=== PATIENT | male | born 1990 | race Caucasian/White ===

== ENCOUNTER 2016-11-22 23:46 | Inpatient (IN) | payer SELFPAY ==
[~2016-11-22] VITALS: Ht 175.3 cm; Wt 132.5 kg
[2016-11-23] MEDS ORDERED: SODIUM CHLORIDE 0.9% 1000ML 1,000 ML IV STA ×2 (00:09)
[2016-11-23 00:58] LABS: BASO % 0.4 %; BASO ABS # 0.06 K/uL (0-0.2); COMPLETE YES; EOS % 6.4 %; HEMATOCRIT 35.8 % (42-52); IG% 0.4 %; LYMPH % 16.6 %; LYMPH ABS # 2.25 K/uL (1.2-3.4); MEAN CELL VOLUME 81.7 fL (80-100); MEAN CORPUSCULAR HEMOGLOBIN 27.2 pg (25-34); MEAN CORPUSCULAR HGB CONC 33.2 g/dl (32-36); MEAN PLATELET VOLUME 9.4 fL (7.4-10.4); MONO % 9.9 %; NEUT % 66.3 %; PLATELET COUNT 319 K/uL (130-400); RED BLOOD COUNT 4.38 M/uL (4.7-6.1); WHITE BLOOD COUNT 13.58 K/uL (4.8-10.8)
[2016-11-23 01:06] LABS: INR 1.1 (0.9-1.1); PARTIAL THROMBOPLASTIN RATIO 1.1; PROTHROMBIN TIME (PATIENT) 11.8 SECONDS (9.0-12.0)
[2016-11-23] MEDS ORDERED: LISI-461 PO (01:07)
[2016-11-23] MEDS ORDERED: PRLSR20 PO (01:08)
[2016-11-23 01:32] LABS: BUN/CREATININE RATIO 7.8 (10-20); CALCIUM 13.7 mg/dl (8.5-10.1); MAGNESIUM 2.2 mg/dl (1.8-2.4); POTASSIUM 3.9 mmol/L (3.5-5.1); THYROID STIMULATING HORMONE 3.12 uIu/ml (0.300-4.500)
[2016-11-23] MEDS ORDERED: ACETAMINOPHEN 325 MG TAB PO PRN (03:15)
--- NOTE | 2016-11-23 03:42 | EMERGENCY ROOM VISIT NOTE ---
History First contact with patient: 00:01 Chief Complaint: REFERRED BY DOCTOR Stated Complaint: REFERRED BY DOCTOR-POOR KIDNEY FUNCTION History of Present Illness The patient is a 26 year old male who presents to the Emergency Room with complaints of referred by for abnormal lab tests. Patient states for the past 3 weeks he has been having morning vomiting and headaches with fatigue. Patient has had some weight loss. He has been noncompliant with his blood pressure medication. He went to the family care doctor today and was sent in for a creatinine and hypercalcemia. Patient states he's had some upper abdominal fullness. No known family history of cancer. Patient denies chest pain, dyspnea, fever, chills, cough, congestion, diarrhea, penile pain, testicular pain, testicular masses, vision problems. He is tolerate by mouth fluids but has a lack of appetite. Review of Systems See HPI for pertinent positives & negatives. A total of 10 systems reviewed and were otherwise negative. Past Medical/Surgical History Medical Problems: (1) Acute renal failure HTN Social History Smoking Status: Never Smoker Smokeless Tobacco Use: No Alcohol Use: occasionally Drug Use: none Marital Status: single Housing Status: lives with family Occupation Status: employed Current/Historical Medications Scheduled Lisinopril (Zestril), 10 MG PO DAILY Omeprazole (Prilosec), 20 MG PO QAM Allergies Coded Allergies: No Known Allergies (Unverified , 12/13/06) Physical Exam Vital Signs Date Time Temp Pulse Resp B/P (MAP) Pulse Ox O2 Delivery O2 Flow Rate FiO2 11/23/16 02:42 94 18 171/116 100 Room Air 11/23/16 01:28 88 11/23/16 00:44 92 20 138/103 95 Room Air 11/23/16 00:43 95 Room Air 11/23/16 00:43 95 Room Air 11/22/16 23:59 36.6 100 19 163/109 95 Room Air Physical Exam VITALS: Vitals are noted on the nurse's note and reviewed by myself. Vital signs hypertensive GENERAL:pleasant male, in no acute distress, nondiaphoretic, well-developed well -nourished. SKIN: Face with slightly malar rash present The rest skin was without rashes, erythema, edema, or bruising. There is no tenting of the skin. Capillary reflex less than 2 seconds. HEAD: Normocephalic atraumatic. EARS: External auditory canals clear, tympanic membranes pearly sellers without erythema or effusion bilaterally. EYES: Pupils equal round and reactive to light and accommodation. Conjunctivae with injection, sclerae without icterus. Extraocular movements intact. NOSE: Patent, turbinates without inflammation or discharge. No sinus tenderness. MOUTH: Mucous membranes moist. Tonsils are not enlarged. Pharynx without erythema or exudate. Uvula midline. Airway patent. Tongue does not deviate. NECK: Supple without nuchal rigidity. No lymphadenopathy. No thyromegaly. Cervical spine is nontender. No JVD. HEART: Regular rate and rhythm without murmurs gallops or rubs. LUNGS: Clear to auscultation bilaterally without wheezes, rales or rhonchi. No dullness to percussion. No retractions or accessory muscle use. ABDOMEN: Positive bowel sounds x 4. Normal tympanic percussion. Soft, nontender, without masses or organomegaly. Arias sign negative. No guarding or rebound tenderness. MUSCULOSKELETAL: No muscle atrophy, erythema, or edema noted. NEURO: Patient was alert and oriented to person place and time. Normal sensation to light and sharp touch. No focal neurological deficits. Medical Decision & Procedures Laboratory Results 11/23/16 00:45 Red Blood Count 4.38, Mean Corpuscular Volume 81.7, Mean Corpuscular Hemoglobin 27.2, Mean Corpuscular Hemoglobin Concent 33.2, Mean Platelet Volume 9.4, Neutrophils (%) (Auto) 66.3, Lymphocytes (%) (Auto) 16.6, Monocytes (%) (Auto) 9.9, Eosinophils (%) (Auto) 6.4, Basophils (%) (Auto) 0.4, Neutrophils # (Auto) 9.01, Lymphocytes # (Auto) 2.25, Monocytes # (Auto) 1.34, Eosinophils # (Auto) 0.87, Basophils # (Auto) 0.06 11/23/16 00:45 Test 11/23/16 00:45 11/23/16 01:00 White Blood Count 13.58 K/uL (4.8-10.8) Red Blood Count 4.38 M/uL (4.7-6.1) Hemoglobin 11.9 g/dL (14.0-18.0) Hematocrit 35.8 % (42-52) Mean Corpuscular Volume 81.7 fL (80-100) Mean Corpuscular Hemoglobin 27.2 pg (25-34) Mean Corpuscular Hemoglobin Concent 33.2 g/dl (32-36) Platelet Count 319 K/uL (130-400) Mean Platelet Volume 9.4 fL (7.4-10.4) Neutrophils (%) (Auto) 66.3 % Lymphocytes (%) (Auto) 16.6 % Monocytes (%) (Auto) 9.9 % Eosinophils (%) (Auto) 6.4 % Basophils (%) (Auto) 0.4 % Neutrophils # (Auto) 9.01 K/uL (1.4-6.5) Lymphocytes # (Auto) 2.25 K/uL (1.2-3.4) Monocytes # (Auto) 1.34 K/uL (0.11-0.59) Eosinophils # (Auto) 0.87 K/uL (0-0.5) Basophils # (Auto) 0.06 K/uL (0-0.2) RDW Standard Deviation 40.8 fL (36.4-46.3) RDW Coefficient of Variation 13.5 % (11.5-14.5) Immature Granulocyte % (Auto) 0.4 % Immature Granulocyte # (Auto) 0.05 K/uL (0.00-0.02) Nucleated RBC Absolute Count (auto) 0.00 K/uL (0-0) Nucleated Red Blood Cells % 0.0 % Prothrombin Time 11.8 SECONDS (9.0-12.0) Prothromb Time International Ratio 1.1 (0.9-1.1) Activated Partial Thromboplast Time 27.9 SECONDS (21.0-31.0) Partial Thromboplastin Ratio 1.1 Anion Gap 13.0 mmol/L (3-11) Est Creatinine Clear Calc Drug Dose 13.7 ml/min Estimated GFR () 6.5 Estimated GFR (Non- 5.6 BUN/Creatinine Ratio 7.8 (10-20) Calcium Level 13.7 mg/dl (8.5-10.1) Phosphorus Level 6.7 mg/dl (2.5-4.9) Magnesium Level 2.2 mg/dl (1.8-2.4) Total Bilirubin 0.4 mg/dl (0.2-1) Direct Bilirubin 0.1 mg/dl (0-0.2) Aspartate Amino Transf (AST/SGOT) 11 U/L (15-37) Alanine Aminotransferase (ALT/SGPT) 22 U/L (12-78) Alkaline Phosphatase 75 U/L (45-117) Lactate Dehydrogenase 177 U/L (87-241) Total Creatine Kinase 119 U/L (39-308) Total Protein 7.8 gm/dl (6.4-8.2) Albumin 3.4 gm/dl (3.4-5.0) Lipase 170 U/L (73-393) Thyroid Stimulating Hormone (TSH) 3.120 uIu/ml (0.300-4.500) Parathyroid Hormone (Intact) 7.5 pg/mL (11.1-79.5) Medications Administered Medications (Trade) Dose Ordered Sig/Krista Route Start Time Stop Time Status Last Admin Dose Admin Sodium Chloride 1,000 ml @ 999 mls/hr Q1H1M STAT IV 11/23/16 00:09 11/23/16 01:09 DC 11/23/16 00:43 999 MLS/HR Sodium Chloride 1,000 ml @ 125 mls/hr Q8H STAT IV 11/23/16 00:09 11/23/16 08:08 11/23/16 00:43 125 MLS/HR ED Course Prior records/ancillary studies reviewed and summarized above. Nursing notes reviewed. Additional history obtained from family. The patient's history was concerning for N/V, FIGUEROA, fatigue, acute renal failure and hypercalcemia. Differential diagnosis: Etiologies such as cancer, kidney disease, metabolic, infection, hypo/ hyperglycemia, electrolyte abnormalities, cardiac sources, intracerebral event, toxicologic, neurologic, as well as others were entertained. Physical examination: As above. ER treatment provided: IV Lock IV fluids On reassessment the patient felt better. Diagnostics interpretation by me: ECG: Normal sinus, normal intervals, no acute ST-T wave changes. Impression normal sinus rhythm interpreted by myself The labs revealed creatinine 11, hypercalcemia, low PTH Imaging studies: Chest x-ray with no acute consolidation, pneumothorax, free air, perihilar lymph node enlargement per my interpretation Negative head CT per radiology US ABDOMEN: Limited assessment of the gallbladder due to its contracted state. No definite gallstones. No biliary dilation. Hepatosplenomegaly. Echogenic liver parenchyma most likely reflects steatosis Consultation: A consultation was placed with the hospitalist, Dr Manrique. The case was discussed and diagnostics were reviewed. The patient was evaluated in the ER for further treatment. Exam and history seem consistent with acute renal failure with hypercalcemia. Reina catheter was placed. Patient was hydrated as above. No acute EKG changes. He will be evaluated by medicine.Hepatosplenomegaly On ultrasound.By the evaluation outlined above emergent etiologies such as infection, cardiac sources, intracerebral event, neurologic, abnormalities blood glucose, as well as others were deemed relatively unlikely. The pt informed about the findings as listed above. All questions were answered and pleased with the treatment. Case reviewed with my attending Medical Decision as above Impression Primary Impression: Acute renal failure Additional Impression: Hypercalcemia Departure Information Dispostion Being Evaluated By Hospitalist Condition FAIR Referrals Kaur العلي D.O. (PCP) Patient Instructions My [facility] Problem Qualifiers Primary Impression: Acute renal failure Acute renal failure type: unspecified Qualified Codes: N17.9 - Acute kidney failure, unspecified
[2016-11-23 03:53] LABS: PHOSPHORUS 6.7 mg/dl (2.5-4.9)
[2016-11-23 04:15] VITALS: BP 185/109; PULSE 93; TEMP 36.9; O2SAT 94; Ht 175.3 cm; Wt 132.5 kg
[2016-11-23] MEDS: SODIUM CHLORIDE 0.9% 1000ML 1,000 ML IV SCH ×4 (05:33→20:32)
[2016-11-23] MEDS: HEPARIN SOD 5000 UNIT/0.5 ML CARP SQ SCH ×3 (05:34→21:49)
[2016-11-23] MEDS ORDERED: NURSING VERBAL MED ORDER ONE (05:45)
--- NOTE | 2016-11-23 06:47 | DIAGNOSTIC IMAGING REPORT ---
CHEST ONE VIEW PORTABLE CLINICAL HISTORY: CHEST PAIN dyspnea COMPARISON STUDY: No previous studies for comparison. FINDINGS: Slight mid mediastinal prominence. Lungs appear clear. Diaphragms smooth. IMPRESSION: Mild mid mediastinal prominence. CT chest recommended to exclude edison pathology. Electronically signed by: Agustin Sheets M.D. 11/23/2016 6:46 AM Dictated Date/Time: 11/23/2016 6:45 AM
[2016-11-23 06:51] LABS: URINE PROTIEN/CREAT RATIO 0.5 (0-0.2); URINE TOTAL PROTEIN 49.5 mg/dl (0-11.9)
[2016-11-23 06:53] LABS: BENZODIAZEPINE, URINE NEG (NEG); COCAINE,URINE NEG (NEG); PHENCYCLIDINE, URINE NEG (NEG)
[2016-11-23 06:55] VITALS: BP 140/94; PULSE 88; TEMP 36.8; O2SAT 95
--- NOTE | 2016-11-23 06:56 | Nephrology Consultation ---
Nephrology Consultation Date of Consultation: Nov 23, 2016. Attending Physician: Raz Reason for Consultation: maryana History of Present Illness Patient is a 26 year old male with hypertension for about 5 yrs who took himself off bp medications about 2 yrs ago and did not seek medical care per him for the last several years. pt about 3 weeks ago started to become tired and had n/v. pt has had a rash on his face which he thought was psoriasis. also noticed eyes being very dry and gritty. was taking nsaids about once a week for diffuse joint pains. no diarrhea. no fevers or chills. did not notice any blood in the urine or decrease in urination. pt did take some tums over the past couple of weeks but not on a daily basis. no tobacco. pt went to family doctor and found to have maryana and hypercalcemia and sent to ER and was subsequently admitted. currently on iv fluids and resting comfortably. denies any family history of renal failure. Past Medical/Surgical History Medical Problems: (1) Hypercalcemia Status: Acute hypertension-untreated for past couple of years wisdom teeth extraction Family History pts mother in a car accident, pt is not close to father and does not know his medical problems, denies any renal disease in family Social History Smoking Status: Never Smoker Alcohol Use: occasionally Drug Use: none Marital Status: single Occupation Status: employed Allergies Coded Allergies: No Known Allergies (Unverified , 12/13/06) Medications Current Inpatient Medications Medications (Trade) Dose Ordered Sig/Krista Route Start Time Stop Time Status Last Admin Dose Admin Heparin Sodium (Porcine) (Heparin Sq 5000 Unit/0.5ml) 5,000 unit Q8 SQ 11/23/16 06:00 12/23/16 05:59 11/23/16 05:34 5,000 UNIT Sodium Chloride 1,000 ml @ 150 mls/hr Q6H40M IV 11/23/16 05:00 12/23/16 04:59 11/23/16 05:33 150 MLS/HR Acetaminophen (Tylenol Tab) 650 mg Q4H PRN PO 11/23/16 03:15 12/23/16 03:14 Amlodipine Besylate (Norvasc Tab) 10 mg Q24H PO 11/23/16 09:00 12/23/16 08:59 11/23/16 06:07 10 MG Pantoprazole Sodium (Protonix Tab) 40 mg QAM PO 11/23/16 09:00 12/23/16 08:59 Home Meds and Scripts Medications Dose Route/Sig Max Daily Dose Days Date Category Dose Instructions Prilosec (Omeprazole) 20 Mg Capcr 20 Mg PO QAM 11/23/16 Reported TAKE THIS MED ONE HOUR BEFORE THE FIRST MEAL OF THE DAY. Zestril (Lisinopril) 10 Mg Tab 10 Mg PO DAILY 11/23/16 Reported Review of Systems Constitutional: + fatigue, No fever, No chills, No weight loss Eyes: + redness, + problem reported (+dry eyes) Respiratory: No shortness of breath Cardiac: No chest pain Abdomen: + nausea, + vomiting Musculoskeletal: + joint pain Endo: + fatigue Skin: + rash all other review of systems otherwise negative Physical Exam Date Time Temp Pulse Resp B/P (MAP) Pulse Ox O2 Delivery O2 Flow Rate FiO2 11/23/16 04:15 36.9 93 18 185/109 94 Room Air 11/23/16 04:03 86 20 164/105 95 Room Air 11/23/16 02:42 94 18 171/116 100 Room Air 11/23/16 01:28 88 11/23/16 00:44 92 20 138/103 95 Room Air 11/23/16 00:43 95 Room Air 11/23/16 00:43 95 Room Air 11/22/16 23:59 36.6 100 19 163/109 95 Room Air General Appearance: no apparent distress Eyes: + pertinent finding (+redness of eyes) ENT: normal ENT inspection Neck: supple Respiratory/Chest: lungs clear, normal breath sounds Cardiovascular: regular rate, rhythm, no edema Abdomen: normal bowel sounds, non tender, soft Extremities: non-tender, no pedal edema Neurologic/Psych: no motor/sensory deficits, alert Skin: normal color, + rash (mild erythema/dry skin on face) Diagnostics Last 24 Hours Test 11/23/16 00:45 11/23/16 01:00 11/23/16 05:58 White Blood Count 13.58 K/uL Red Blood Count 4.38 M/uL Hemoglobin 11.9 g/dL Hematocrit 35.8 % Mean Corpuscular Volume 81.7 fL Mean Corpuscular Hemoglobin 27.2 pg Mean Corpuscular Hemoglobin Concent 33.2 g/dl Platelet Count 319 K/uL Mean Platelet Volume 9.4 fL Neutrophils (%) (Auto) 66.3 % Lymphocytes (%) (Auto) 16.6 % Monocytes (%) (Auto) 9.9 % Eosinophils (%) (Auto) 6.4 % Basophils (%) (Auto) 0.4 % Neutrophils # (Auto) 9.01 K/uL Lymphocytes # (Auto) 2.25 K/uL Monocytes # (Auto) 1.34 K/uL Eosinophils # (Auto) 0.87 K/uL Basophils # (Auto) 0.06 K/uL RDW Standard Deviation 40.8 fL RDW Coefficient of Variation 13.5 % Immature Granulocyte % (Auto) 0.4 % Immature Granulocyte # (Auto) 0.05 K/uL Nucleated RBC Absolute Count (auto) 0.00 K/uL Nucleated Red Blood Cells % 0.0 % Red Blood Cell Morphology Unremarkable Prothrombin Time 11.8 SECONDS Prothromb Time International Ratio 1.1 Activated Partial Thromboplast Time 27.9 SECONDS Partial Thromboplastin Ratio 1.1 Sodium Level 135 mmol/L Potassium Level 3.9 mmol/L Chloride Level 96 mmol/L Carbon Dioxide Level 26 mmol/L Anion Gap 13.0 mmol/L Blood Urea Nitrogen 86 mg/dl Creatinine 11.00 mg/dl Est Creatinine Clear Calc Drug Dose 13.7 ml/min Estimated GFR () 6.5 Estimated GFR (Non- 5.6 BUN/Creatinine Ratio 7.8 Random Glucose 124 mg/dl Calcium Level 13.7 mg/dl Phosphorus Level 6.7 mg/dl Magnesium Level 2.2 mg/dl Total Bilirubin 0.4 mg/dl Direct Bilirubin 0.1 mg/dl Aspartate Amino Transf (AST/SGOT) 11 U/L Alanine Aminotransferase (ALT/SGPT) 22 U/L Alkaline Phosphatase 75 U/L Lactate Dehydrogenase 177 U/L Total Creatine Kinase 119 U/L Total Protein 7.8 gm/dl Albumin 3.4 gm/dl Lipase 170 U/L Thyroid Stimulating Hormone (TSH) 3.120 uIu/ml Parathyroid Hormone (Intact) 7.5 pg/mL Assessment & Plan elevated creatinine-unclear if this is progressive chronic kidney disease in the setting of uncontrolled hypertension for several years vs element of volume depletion and maryana with hypercalcemia vs autoimmune condition ie sjogrens/lupus or underlying vascultitis. abdominal us is pending. currently on iv fluids. no indication for emergent dialysis at this time. checking ua to screen for blood or protein. could have elevated proteinuria from maryana and or elevated blood pressures as well. may need transferred to tertiary care center for renal biopsy if does not start to improve with iv fluids. hypercalcemia-checking vitamin d, pthrp, spep, madi. treating with iv fluids initially. pth is appropriately low. hold off on a bisphosphanate for now. Anemia-checking tsat and spep. HTN: started on norvasc 10 and will try to gradually improve the elevated blood pressures. should also improve if able to lower calcium levels. low albumin suggestive of nephrotic syndrome although does not appear edematous. prot/cr pending.
--- NOTE | 2016-11-23 07:07 | DIAGNOSTIC IMAGING REPORT ---
HEAD WITHOUT CONTRAST (CT) CLINICAL HISTORY: 26 years-old Male presenting with FIGUEROA, hypercalcemia. TECHNIQUE: Multidetector CT imaging of the head was performed without the use of intravenous contrast. COMPARISON: None. CT DOSE: 537.48 mGy.cm FINDINGS: Brain parenchyma normal in appearance with preserved sellers-white differentiation. No mass effect or midline shift. No hemorrhage or acute territorial infarct. No hydrocephalus. No extra-axial fluid collection. Minimal mucosal thickening of the left maxillary sinus. Calvarium intact. IMPRESSION: No acute intracranial pathology. Electronically signed by: Matias Howard M.D. 11/23/2016 7:05 AM Dictated Date/Time: 11/23/2016 7:03 AM
--- NOTE | 2016-11-23 07:22 | DIAGNOSTIC IMAGING REPORT ---
ABDOMEN COMPLETE (US) CLINICAL HISTORY: 26 years-old Male presenting with upper abd fullness, hypercalcemia, AM Vomiting, CR 10, weak. TECHNIQUE: Real-time grayscale and limited color Doppler ultrasound imaging of the abdomen was performed. COMPARISON: None. FINDINGS: Pancreas: Obscured due to overlying bowel gas. Liver: Hyperechogenic parenchyma with heterogeneous echotexture, likely indicating fibrosis or steatosis. The liver measures 23.8 cm in maximal sagittal dimension. Main portal vein patent with normal directional flow. Biliary: No intrahepatic biliary ductal dilatation. Common bile duct measures up to 3 mm in diameter. Gallbladder: Contracted although without gallstones. Spleen: Normal in echogenicity but enlarged, measuring 18.3 cm in length. Kidneys: Normal in size and echogenicity. Right kidney measures 13 cm, and the left kidney measures 12.9 cm. No hydronephrosis. Vasculature: Visualized portions of the IVC and abdominal aorta normal. Bladder: Bilateral ureteral jets. Hyperechogenic focus within the visualized portion of the prostate consistent with calcification, possibly indicating benign prosthetic hyperplasia. Ascites: None. IMPRESSION: 1. Pancreas obscured due to overlying bowel gas. 2. No evidence of cholecystitis. 3. Echogenic and heterogeneous liver parenchyma may indicate fibrosis or steatosis. 4. Hepatosplenomegaly. Electronically signed by: Matias Howard M.D. 11/23/2016 7:20 AM Dictated Date/Time: 11/23/2016 7:16 AM
[2016-11-23 07:34] LABS: URINE APPEARANCE CLEAR (CLEAR); URINE BILIRUBIN NEG (NEG); URINE COLOR YELLOW; URINE EPITHELIAL CELL AUTO >30 /lpf (0-5); URINE NITRITE NEG (NEG); URINE PH 6.5 (4.5-7.5); URINE SPECIFIC GRAVITY 1.016 (1.000-1.030); UROBILINOGEN NEG (NEG)
[2016-11-23 07:39] LABS: MANUAL MICROSCOPIC REQUIRED? NO; REVIEW REQ? YES
[2016-11-23 08:13] LABS: ALB/GLOB RATIO 0.8 (0.9-2); BUN/CREATININE RATIO 8.2 (10-20); CALCIUM 12.6 mg/dl (8.5-10.1); POTASSIUM 4.1 mmol/L (3.5-5.1)
[2016-11-23 08:24] LABS: FERRITIN 480.5 ng/ml (8.0-388.0)
[2016-11-23] MEDS ORDERED: AMLODIPINE BESYLATE 5 MG TAB PO SCH (09:00)
[2016-11-23] MEDS ORDERED: PANTOprazole SOD 40 MG TAB PO SCH (09:00)
--- NOTE | 2016-11-23 09:41 | History and Physical ---
History & Physical Date & Time of Service: Nov 23, 2016 at 03:39 Chief Complaint: Referred By Doctor-Poor Kidney Function Primary Care Physician: Kaur العلي D.O. History of Present Illness Source: patient, family, clinic records, hospital records 26 yo M with HTN for 1-2 years presents with 3 weeks of malaise and intermittent nausea and vomiting along with fatigue. He was seen in PCP office and found to be in renal failure with a creatinine of 9.9. In the ER, labwork reveals a creat 10 and a calcium of 14. He reports that his face, which has always had a rash on it, has been more red in the last few weeks. Also he has been suffering from dryness and grittiness in his eyes, which are significantly red and irritated. He also states that his mouth is dry. 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 He also has hand fatigue while riding a bike, making this hard , as well. He reports a h/o gout in his R knee, however, when asked further, this was not crystal-proven gout. Instead there are calcium deposits in both knees along the tibial plateau, and on the right he remembers hitting it and it becoming red and hot and swollen. He states he was treated with abx although no one tested the synovial fluid, and ultimately it got better. He denies tendonitis or calcium deposits anywhere else. He denies chest pain or shortness of breath. He does admit to some headaches and reports that he hasn't been eating well lately and feels that he must have lost weight. He denies any travel history or tick bites. He denies any abdominal pain. He reports occasional use of NSAIDs for his pain in his fingers but this is no more than once weekly. He reports not using lisinopril regularly, and this has gone on for at least one year. He simply forgets to take it. He denies any history of medical problems in parents, however, his mother young from an OD and his father, although alive, gave custody to a neighbor with whom he still lives. Past Medical/Surgical History Medical Problems: (1) Hypertension Status: Chronic Surgical Problems: (1) S/P wisdom tooth extraction Status: Chronic Social History Smoking Status: Never Smoker Smokeless Tobacco Use: No Alcohol Use: occasionally Drug Use: none Marital Status: single Housing status: lives with family Occupational Status: employed Immunizations History of Influenza Vaccine: No History of Tetanus Vaccine?: Yes Tetanus Immunization Date: Mar 27, 2005 History of Pneumococcal: No History of Hepatitis B Vaccine: Yes Hepatitis Immunization Date: Dec 01, 1998 Multi-Drug Resistant Organisms History of MDRO: No Allergies Coded Allergies: No Known Allergies (Unverified , 12/13/06) Home Medications Scheduled Lisinopril (Zestril), 10 MG PO DAILY Omeprazole (Prilosec), 20 MG PO QAM Review of Systems At least ten systems were reviewed and negative except as indicated in HPI. Physical Exam Vital Signs Date Time Temp Pulse Resp B/P (MAP) Pulse Ox O2 Delivery O2 Flow Rate FiO2 11/23/16 02:42 94 18 171/116 100 Room Air 11/23/16 01:28 88 11/23/16 00:44 92 20 138/103 95 Room Air 11/23/16 00:43 95 Room Air 11/23/16 00:43 95 Room Air 11/22/16 23:59 36.6 100 19 163/109 95 Room Air GEN: WNWD, in no acute distress, alert and appropriate, in good spirits. HEENT: NC/AT, PERRL, irritated and red-appearing sclerae bilaterally, EOMMI, pharynx non-acute, MMM, no LAD CARDIO: reg rate, S1/2 heard without m/g/r LUNGS: CTA bilaterally, no crackles, rales or wheezes, good diaphragmatic excursion ABD: soft, non-tender, non-distended, no rebound or guarding, +BS EXTREMITY: RP and DP palpable 2+ bilat, no LE swelling or edema, extremities are warm and well-perfused NEURO: CN 2-12 grossly intact, sensation intact throughout MUSC: 5/5 strength throughout, no focal deficits x cannot close a tight fist on the left hand. SKIN: warm and dry, calcium deposits in knees bilaterally, erythematous macular rash across bridge of nose and T-zone, nailbeds are normal Diagnostics Laboratory Results 11/23/16 00:45 Red Blood Count 4.38, Mean Corpuscular Volume 81.7, Mean Corpuscular Hemoglobin 27.2, Mean Corpuscular Hemoglobin Concent 33.2, Mean Platelet Volume 9.4, Neutrophils (%) (Auto) 66.3, Lymphocytes (%) (Auto) 16.6, Monocytes (%) (Auto) 9.9, Eosinophils (%) (Auto) 6.4, Basophils (%) (Auto) 0.4, Neutrophils # (Auto) 9.01, Lymphocytes # (Auto) 2.25, Monocytes # (Auto) 1.34, Eosinophils # (Auto) 0.87, Basophils # (Auto) 0.06 11/23/16 07:30 Test 11/23/16 00:45 11/23/16 01:00 11/23/16 05:58 11/23/16 07:26 White Blood Count 13.58 K/uL (4.8-10.8) Red Blood Count 4.38 M/uL (4.7-6.1) Hemoglobin 11.9 g/dL (14.0-18.0) Hematocrit 35.8 % (42-52) Mean Corpuscular Volume 81.7 fL (80-100) Mean Corpuscular Hemoglobin 27.2 pg (25-34) Mean Corpuscular Hemoglobin Concent 33.2 g/dl (32-36) Platelet Count 319 K/uL (130-400) Mean Platelet Volume 9.4 fL (7.4-10.4) Neutrophils (%) (Auto) 66.3 % Lymphocytes (%) (Auto) 16.6 % Monocytes (%) (Auto) 9.9 % Eosinophils (%) (Auto) 6.4 % Basophils (%) (Auto) 0.4 % Neutrophils # (Auto) 9.01 K/uL (1.4-6.5) Lymphocytes # (Auto) 2.25 K/uL (1.2-3.4) Monocytes # (Auto) 1.34 K/uL (0.11-0.59) Eosinophils # (Auto) 0.87 K/uL (0-0.5) Basophils # (Auto) 0.06 K/uL (0-0.2) RDW Standard Deviation 40.8 fL (36.4-46.3) RDW Coefficient of Variation 13.5 % (11.5-14.5) Immature Granulocyte % (Auto) 0.4 % Immature Granulocyte # (Auto) 0.05 K/uL (0.00-0.02) Nucleated RBC Absolute Count (auto) 0.00 K/uL (0-0) Nucleated Red Blood Cells % 0.0 % Red Blood Cell Morphology Unremarkable Peripheral Blood Smear Path Consult Prothrombin Time 11.8 SECONDS (9.0-12.0) Prothromb Time International Ratio 1.1 (0.9-1.1) Activated Partial Thromboplast Time 27.9 SECONDS (21.0-31.0) Partial Thromboplastin Ratio 1.1 Phosphorus Level 6.7 mg/dl (2.5-4.9) Magnesium Level 2.2 mg/dl (1.8-2.4) Direct Bilirubin 0.1 mg/dl (0-0.2) Lactate Dehydrogenase 177 U/L (87-241) Total Creatine Kinase 119 U/L (39-308) Lipase 170 U/L (73-393) Thyroid Stimulating Hormone (TSH) 3.120 uIu/ml (0.300-4.500) Parathyroid Hormone (Intact) 7.5 pg/mL (11.1-79.5) Urine Color YELLOW Urine Appearance CLEAR (CLEAR) Urine pH 6.5 (4.5-7.5) Urine Specific Martin 1.016 (1.000-1.030) Urine Protein 1+ (NEG) Urine Glucose (UA) NEG (NEG) Urine Ketones NEG (NEG) Urine Occult Blood 1+ (NEG) Urine Nitrite NEG (NEG) Urine Bilirubin NEG (NEG) Urine Urobilinogen NEG (NEG) Urine Leukocyte Esterase MODERATE (NEG) Urine WBC (Auto) >30 /hpf (0-5) Urine RBC (Auto) 0-4 /hpf (0-4) Urine Hyaline Casts (Auto) 1-5 /lpf (0-5) Urine Epithelial Cells (Auto) >30 /lpf (0-5) Urine Bacteria (Auto) NEG (NEG) Urine Renal Epithelial Cells 0-5 /lpf (0-5) Urine Random Creatinine 100.0 mg/dl Urine Random Total Protein 49.5 mg/dl (0-11.9) Urine Random Sodium 54 mEq/L Urine Protein/Creatinine Ratio 0.5 (0-0.2) Urine Opiates Screen NEG (NEG) Urine Methadone, Qualitative NEG (NEG) Urine Barbiturates NEG (NEG) Urine Phencyclidine (PCP) Level NEG (NEG) Ur Amphetamine/Methamphetamine NEG (NEG) MDMA (Ecstasy) Screen NEG (NEG) Urine Benzodiazepines Screen NEG (NEG) Urine Cocaine Metabolite NEG (NEG) Urine Marijuana (THC) NEG (NEG) Erythrocyte Sedimentation Rate 72 mm/hr (0-14) Iron Level 35 mcg/dl (35-175) Total Iron Binding Capacity 274 mcg/dl (250-450) Transferrin 214 mg/dl (200-360) Transferrin % Saturation 12 % (20-50) Ferritin 480.5 ng/ml (8.0-388.0) Test 11/23/16 07:30 Anion Gap 14.0 mmol/L (3-11) Est Creatinine Clear Calc Drug Dose 14.8 ml/min Estimated GFR () 7.3 Estimated GFR (Non- 6.3 BUN/Creatinine Ratio 8.2 (10-20) Calcium Level 12.6 mg/dl (8.5-10.1) Total Bilirubin 0.4 mg/dl (0.2-1) Aspartate Amino Transf (AST/SGOT) 11 U/L (15-37) Alanine Aminotransferase (ALT/SGPT) 21 U/L (12-78) Alkaline Phosphatase 68 U/L (45-117) Total Protein 7.5 gm/dl (6.4-8.2) Albumin 3.4 gm/dl (3.4-5.0) Globulin 4.1 gm/dl (2.5-4.0) Albumin/Globulin Ratio 0.8 (0.9-2) Results Past 24 Hours Test 11/23/16 00:45 11/23/16 01:00 11/23/16 03:18 Range/Units White Blood Count 13.58 4.8-10.8 K/uL Red Blood Count 4.38 4.7-6.1 M/uL Hemoglobin 11.9 14.0-18.0 g/dL Hematocrit 35.8 42-52 % Mean Corpuscular Volume 81.7 80-100 fL Mean Corpuscular Hemoglobin 27.2 25-34 pg Mean Corpuscular Hemoglobin Concent 33.2 32-36 g/dl Platelet Count 319 130-400 K/uL Mean Platelet Volume 9.4 7.4-10.4 fL Neutrophils (%) (Auto) 66.3 % Lymphocytes (%) (Auto) 16.6 % Monocytes (%) (Auto) 9.9 % Eosinophils (%) (Auto) 6.4 % Basophils (%) (Auto) 0.4 % Neutrophils # (Auto) 9.01 1.4-6.5 K/uL Lymphocytes # (Auto) 2.25 1.2-3.4 K/uL Monocytes # (Auto) 1.34 0.11-0.59 K/uL Eosinophils # (Auto) 0.87 0-0.5 K/uL Basophils # (Auto) 0.06 0-0.2 K/uL RDW Standard Deviation 40.8 36.4-46.3 fL RDW Coefficient of Variation 13.5 11.5-14.5 % Immature Granulocyte % (Auto) 0.4 % Immature Granulocyte # (Auto) 0.05 0.00-0.02 K/uL Prothrombin Time 11.8 9.0-12.0 SECONDS Prothromb Time International Ratio 1.1 0.9-1.1 Activated Partial Thromboplast Time 27.9 21.0-31.0 SECONDS Partial Thromboplastin Ratio 1.1 Sodium Level 135 136-145 mmol/L Potassium Level 3.9 3.5-5.1 mmol/L Chloride Level 96 98-107 mmol/L Carbon Dioxide Level 26 21-32 mmol/L Anion Gap 13.0 3-11 mmol/L Blood Urea Nitrogen 86 7-18 mg/dl Creatinine 11.00 0.60-1.40 mg/dl Est Creatinine Clear Calc Drug Dose 13.7 ml/min Estimated GFR () 6.5 Estimated GFR (Non- 5.6 BUN/Creatinine Ratio 7.8 10-20 Random Glucose 124 70-99 mg/dl Calcium Level 13.7 8.5-10.1 mg/dl Magnesium Level 2.2 1.8-2.4 mg/dl Total Bilirubin 0.4 0.2-1 mg/dl Direct Bilirubin 0.1 0-0.2 mg/dl Aspartate Amino Transf (AST/SGOT) 11 15-37 U/L Alanine Aminotransferase (ALT/SGPT) 22 12-78 U/L Alkaline Phosphatase 75 45-117 U/L Lactate Dehydrogenase 177 87-241 U/L Total Creatine Kinase 119 39-308 U/L Total Protein 7.8 6.4-8.2 gm/dl Albumin 3.4 3.4-5.0 gm/dl Lipase 170 73-393 U/L Thyroid Stimulating Hormone (TSH) 3.120 0.300-4.500 uIu/ml Parathyroid Hormone (Intact) 7.5 11.1-79.5 pg/mL Diagnostic Radiology ABDOMEN COMPLETE (US) CLINICAL HISTORY: 26 years-old Male presenting with upper abd fullness, hypercalcemia, AM Vomiting, CR 10, weak. TECHNIQUE: Real-time grayscale and limited color Doppler ultrasound imaging of the abdomen was performed. COMPARISON: None. FINDINGS: Pancreas: Obscured due to overlying bowel gas. Liver: Hyperechogenic parenchyma with heterogeneous echotexture, likely indicating fibrosis or steatosis. The liver measures 23.8 cm in maximal sagittal dimension. Main portal vein patent with normal directional flow. Biliary: No intrahepatic biliary ductal dilatation. Common bile duct measures up to 3 mm in diameter. Gallbladder: Contracted although without gallstones. Spleen: Normal in echogenicity but enlarged, measuring 18.3 cm in length. Kidneys: Normal in size and echogenicity. Right kidney measures 13 cm, and the left kidney measures 12.9 cm. No hydronephrosis. Vasculature: Visualized portions of the IVC and abdominal aorta normal. Bladder: Bilateral ureteral jets. Hyperechogenic focus within the visualized portion of the prostate consistent with calcification, possibly indicating benign prosthetic hyperplasia. Ascites: None. IMPRESSION: 1. Pancreas obscured due to overlying bowel gas. 2. No evidence of cholecystitis. 3. Echogenic and heterogeneous liver parenchyma may indicate fibrosis or steatosis. 4. Hepatosplenomegaly. CHEST ONE VIEW PORTABLE CLINICAL HISTORY: CHEST PAIN dyspnea COMPARISON STUDY: No previous studies for comparison. FINDINGS: Slight mid mediastinal prominence. Lungs appear clear. Diaphragms smooth. IMPRESSION: Mild mid mediastinal prominence. CT chest recommended to exclude edison pathology. HEAD WITHOUT CONTRAST (CT) CLINICAL HISTORY: 26 years-old Male presenting with FIGUEROA, hypercalcemia. TECHNIQUE: Multidetector CT imaging of the head was performed without the use of intravenous contrast. COMPARISON: None. CT DOSE: 537.48 mGy.cm FINDINGS: Brain parenchyma normal in appearance with preserved sellers-white differentiation. No mass effect or midline shift. No hemorrhage or acute territorial infarct. No hydrocephalus. No extra-axial fluid collection. Minimal mucosal thickening of the left maxillary sinus. Calvarium intact. IMPRESSION: No acute intracranial pathology. EKG SR 96 Impression Assessment and Plan 26 yo M presents with acute renal failure and hypercalcemia 1. Acute renal failure-etiologies include but are not limited to pre-renal etiology in setting of decreased PO intake and vomiting, post-renal obstruction , shock kidney,glomerular disease, autoimmune disease such as Sjorgens and/or Scleroderma vs lupus. Vasculitis is another possibility. Still others include malignancy and working with paints consisting of heavy metals (toxicity). Urine studies and other labwork pending. For now, cont IVF at 150mls/hr and consult Nephrology. Reina placed 2. Hypercelcemia-uncertain cause except if just renal failure. PTH is low. Awaiting 25OH and other labs. 3. HTN-elevated, will hold Lisinopril in setting of DAT (however, note that if this is scleroderma renal crisis, captopril wound be treatment of choice). Started Norvasc with improvement. 4. 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 Dry, gritty eyes and dry mouth present may be Sjorgen's which may be 2/2 scleroderma.? Rheumatology consulted to help with workup. 5. Nausea/vomiting-cont supportive care as needed DVT proph-heparin in setting of renal failure Full Code Dispo-to telemetry Natalie Crandall DO [facility] Level of Care Telemetry Resuscitation Status FULL RESUSCITATION VTE Prophylaxis VTE Risk Assessment Done? Y/N: Yes Risk Level: Moderate Given or contraindicated: Unfractionated heparin SQ
--- NOTE | 2016-11-23 10:55 | DIAGNOSTIC IMAGING REPORT ---
ABD/PELVIS NO IV OR ORAL CONT CT DOSE: 1834.72 mGy.cm HISTORY: Abnormal ultrasound splenomegaly /SANTY /hypercalcemia TECHNIQUE: Multiaxial CT images of the abdomen and pelvis were performed without contrast. COMPARISON STUDY: Ultrasound 11/23/2016 FINDINGS: Lung bases are clear. Mild nonspecific hepatosplenomegaly. Kidneys are negative for hydronephrosis or calcification. Celiac axis nodes measure to 1.3 cm. Mild peripancreatic as well as mesenteric edison change. Nodes measure up to 12 mm. Several periaortic nodes measuring up to 1.4 cm. Gallbladder is contracted. Pancreas appears unremarkable within limitations of an unenhanced scan. Bowel pattern within the abdomen and pelvis is nonobstructive. Normal appendix. Reina catheter present within the bladder. Mild bilateral inguinal adenopathy with nodes measuring to 12 mm. IMPRESSION: 1. Moderate hepatosplenomegaly. 2. Abdominal and inguinal adenopathy as described . 3. Although these findings potentially relate to reactive change, possibly of an etiology such as lymphoma cannot be excluded. The above report was generated using voice recognition software. It may contain grammatical, syntax or spelling errors. Electronically signed by: Agustin Sheets M.D. 11/23/2016 10:54 AM Dictated Date/Time: 11/23/2016 10:48 AM
[2016-11-23 11:50] VITALS: BP 145/94; PULSE 85; TEMP 36.7; O2SAT 99
[2016-11-23] MEDS ORDERED: IRON SUCROSE INJ 100 MG in SODIUM CHLORIDE 0.9% 100ML 100 ML IV SCH (15:30)
[2016-11-23 15:48] VITALS: BP 146/97; PULSE 85; TEMP 36.8; O2SAT 100
--- NOTE | 2016-11-23 16:32 | DIAGNOSTIC IMAGING REPORT ---
CT SCAN OF THE CHEST WITHOUT IV CONTRAST CLINICAL HISTORY: Abnormal chest x-ray. Mediastinal widening. COMPARISON STUDY: Chest x-ray dated 11/23/2016. TECHNIQUE: CT scan of the thorax was performed from the thoracic inlet to the upper abdomen. Images are reviewed in the axial, sagittal, and coronal planes. IV contrast was not administered for this examination as per the referring clinician. Note that the examination is suboptimal without IV contrast. CT DOSE: 916.79 mGy.cm FINDINGS: Thyroid: Imaged portions of the thyroid gland are normal in size and attenuation. Thoracic aorta: The thoracic aorta is normal in caliber and demonstrates standard 3-vessel arch anatomy. Heart: The heart is normal in size and without pericardial effusion. The pulmonary trunk is normal in caliber. Lungs and pleural spaces: There is a trace right pleural effusion. A 3 mm pleural-based nodule is seen in the right middle lobe along the minor fissure on axial image #132. No airspace consolidation is seen typical for pneumonia. The trachea and central airways are clear. Mediastinum: There are numerous mildly enlarged mediastinal lymph nodes. The largest is in the high right peritracheal region on image #43 measuring 1.3 cm in short axis. Prevascular nodes measure up to 1.1 cm in short axis as seen on image #96. A subcarinal node on image #121 measures 1.6 cm in short axis. Melba: Not well assessed without IV contrast. Axillae: There is no axillary lymphadenopathy. Upper abdomen: The spleen is markedly enlarged measuring over 17 cm in length. Mildly enlarged gastrohepatic lymph nodes are identified. These measure up to 1.5 cm in short axis. Skeletal structures: No lytic or blastic bony lesions are seen. IMPRESSION: 1. Trace right pleural effusion. No airspace consolidation is seen typical for pneumonia. 2. There are numerous mildly enlarged mediastinal lymph nodes. These are of indeterminant etiology and significance, and may be on a reactive basis. A lymphoproliferative disorder is not excluded. Clinical correlation and follow-up will be required. 3. Marked splenomegaly and mildly enlarged upper abdominal lymph nodes. 4. No axillary lymphadenopathy is identified. Electronically signed by: Pan Saez M.D. 11/23/2016 4:31 PM Dictated Date/Time: 11/23/2016 4:24 PM
--- NOTE | 2016-11-23 18:32 | Medical Consult ---
Consultation Date of Consultation: Nov 23, 2016. Attending Physician: Juan Matute MD Reason for Consultation: lymphadenopathy renal failure, hyperuricemia and hypercalcemia History of Present Illness 26 year old male with history of hypertension admitted with symptoms of fatigue and intermittent nausea and vomiting for about 3 weeks and dryness and erythema and irritation of his eyes. He states that he has scaly rash on the face on and off and pain and swelling of his hands for few years but feel that it is worse. He denies any blurry vision or diplopia. He denies headache. He denies any fever or chills or night sweats. He has had early satiety for past 3 weeks but is unsure about any weight loss. He denies any cough or chest pain or shortness of breath. He denies any dark urine or hematuria. He noticed decrease in urination over the past 3 weeks. He has a history of Hypertension for about 5 years, was on medication but had not been following up for about past 2 years. He was found to have elevated creatinine, hypercalcemia, hyperuricemia, and mild normocytic anemia, mild leukocytosis on labs CT scan shows mediastinal and abdominal and inguinal adenopathy and hepatosplenomegaly - could be reactive process but lymphoproliferative disorder cannot be excluded Past Medical/Surgical History PAST MEDICAL HISTORY/PAST SURGICAL HISTORY: HYPERTENSION, WISDOM TOOTH EXTRACTION Current Problems: (1) Hypercalcemia, renal failure, adenopathy, hepatosplenomegaly Status: Acute Family History FAMILY HISTORY: paternal grandmother had leukemia mother in a car accident He does not know of any family history of renal disease or other cancers or autoimmune disorders Social History Smoking Status: Never Smoker Smokeless Tobacco Use: No Alcohol Use: occasionally Drug Use: none Marital Status: single 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, 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) Allergies Coded Allergies: No Known Allergies (Unverified , 12/13/06) Current Inpatient Medications Current Inpatient Medications Medications (Trade) Dose Ordered Sig/Krista Route Start Time Stop Time Status Last Admin Dose Admin Heparin Sodium (Porcine) (Heparin Sq 5000 Unit/0.5ml) 5,000 unit Q8 SQ 11/23/16 06:00 12/23/16 05:59 11/23/16 14:26 5,000 UNIT Sodium Chloride 1,000 ml @ 200 mls/hr Q5H IV 11/23/16 05:00 8/12/17 04:59 11/23/16 15:35 200 MLS/HR Acetaminophen (Tylenol Tab) 650 mg Q4H PRN PO 11/23/16 03:15 12/23/16 03:14 Amlodipine Besylate (Norvasc Tab) 10 mg Q24H PO 11/23/16 09:00 12/23/16 08:59 11/23/16 06:07 10 MG Pantoprazole Sodium (Protonix Tab) 40 mg QAM PO 11/23/16 09:00 12/23/16 08:59 11/23/16 07:42 40 MG Iron Sucrose 100 mg/Sodium Chloride 105 ml @ 420 mls/hr DAILY IV 11/23/16 15:30 11/26/16 14:44 11/23/16 15:35 420 MLS/HR Review of Systems Constitutional: No fever, No chills, No sweats, No fatigue Eyes: + redness ENT: No unusual epistaxis, No sore throat Respiratory: No cough, No sputum, No wheezing, No shortness of breath, No dyspnea on exertion Cardiovascular: No chest pain, No edema Abdomen: + nausea, + vomiting, No pain, No diarrhea, No constipation Musculoskeletal: + joint pain (hands), + swelling (hands) Genitourinary - Male: No hematuria, No dysuria Neurologic: No numbness/tingling Endocrine: No fatigue Hematologic / Lymphatic: + swollen lymph nodes Integumentary: + rash Physical Exam Date Time Temp Pulse Resp B/P (MAP) Pulse Ox O2 Delivery O2 Flow Rate FiO2 11/23/16 16:00 Room Air 11/23/16 15:48 36.8 85 20 146/97 (113) 100 Room Air 11/23/16 12:00 Room Air 11/23/16 11:50 36.7 85 18 145/94 (111) 99 Room Air 11/23/16 08:00 Room Air 11/23/16 06:55 36.8 88 19 140/94 (109) 95 Room Air 11/23/16 04:15 36.9 93 18 185/109 94 Room Air 11/23/16 04:03 86 20 164/105 95 Room Air 11/23/16 02:42 94 18 171/116 100 Room Air 11/23/16 01:28 88 11/23/16 00:44 92 20 138/103 95 Room Air 11/23/16 00:43 95 Room Air 11/23/16 00:43 95 Room Air 11/22/16 23:59 36.6 100 19 163/109 95 Room Air General Appearance: WD/WN, no apparent distress Head: normocephalic, atraumatic Eyes: + pertinent finding (erythema bilaterally) Neck: supple, no adenopathy, no JVD Respiratory/Chest: lungs clear, normal breath sounds, no respiratory distress, no accessory muscle use Cardiovascular: regular rate, rhythm, no edema, no gallop Abdomen/GI: normal bowel sounds, non tender, soft, + pertinent finding (obese) Extremities/Musculoskelatal: no pedal edema Neurologic/Psych: alert, oriented x 3 Skin: + pertinent finding (mild erythema/scaly rash between eyebrows and mild erythema of his face) Laboratory Results Last 24 Hours Test 11/23/16 00:45 11/23/16 01:00 11/23/16 05:58 11/23/16 07:26 White Blood Count 13.58 K/uL Red Blood Count 4.38 M/uL Hemoglobin 11.9 g/dL Hematocrit 35.8 % Mean Corpuscular Volume 81.7 fL Mean Corpuscular Hemoglobin 27.2 pg Mean Corpuscular Hemoglobin Concent 33.2 g/dl Platelet Count 319 K/uL Mean Platelet Volume 9.4 fL Neutrophils (%) (Auto) 66.3 % Lymphocytes (%) (Auto) 16.6 % Monocytes (%) (Auto) 9.9 % Eosinophils (%) (Auto) 6.4 % Basophils (%) (Auto) 0.4 % Neutrophils # (Auto) 9.01 K/uL Lymphocytes # (Auto) 2.25 K/uL Monocytes # (Auto) 1.34 K/uL Eosinophils # (Auto) 0.87 K/uL Basophils # (Auto) 0.06 K/uL RDW Standard Deviation 40.8 fL RDW Coefficient of Variation 13.5 % Immature Granulocyte % (Auto) 0.4 % Immature Granulocyte # (Auto) 0.05 K/uL Nucleated RBC Absolute Count (auto) 0.00 K/uL Nucleated Red Blood Cells % 0.0 % Red Blood Cell Morphology Unremarkable Peripheral Blood Smear Path Consult Prothrombin Time 11.8 SECONDS Prothromb Time International Ratio 1.1 Activated Partial Thromboplast Time 27.9 SECONDS Partial Thromboplastin Ratio 1.1 Sodium Level 135 mmol/L Potassium Level 3.9 mmol/L Chloride Level 96 mmol/L Carbon Dioxide Level 26 mmol/L Anion Gap 13.0 mmol/L Blood Urea Nitrogen 86 mg/dl Creatinine 11.00 mg/dl Est Creatinine Clear Calc Drug Dose 13.7 ml/min Estimated GFR () 6.5 Estimated GFR (Non- 5.6 BUN/Creatinine Ratio 7.8 Random Glucose 124 mg/dl Calcium Level 13.7 mg/dl Phosphorus Level 6.7 mg/dl Magnesium Level 2.2 mg/dl Total Bilirubin 0.4 mg/dl Direct Bilirubin 0.1 mg/dl Aspartate Amino Transf (AST/SGOT) 11 U/L Alanine Aminotransferase (ALT/SGPT) 22 U/L Alkaline Phosphatase 75 U/L Lactate Dehydrogenase 177 U/L Total Creatine Kinase 119 U/L Total Protein 7.8 gm/dl Albumin 3.4 gm/dl Lipase 170 U/L 25-Hydroxy Vitamin D Total 13.7 ng/ml Thyroid Stimulating Hormone (TSH) 3.120 uIu/ml Random Cortisol 19.69 mcg/dl Parathyroid Hormone (Intact) 7.5 pg/mL Urine Color YELLOW Urine Appearance CLEAR Urine pH 6.5 Urine Specific [place] 1.016 Urine Protein 1+ Urine Glucose (UA) NEG Urine Ketones NEG Urine Occult Blood 1+ Urine Nitrite NEG Urine Bilirubin NEG Urine Urobilinogen NEG Urine Leukocyte Esterase MODERATE Urine WBC (Auto) >30 /hpf Urine RBC (Auto) 0-4 /hpf Urine Hyaline Casts (Auto) 1-5 /lpf Urine Epithelial Cells (Auto) >30 /lpf Urine Bacteria (Auto) NEG Urine Renal Epithelial Cells 0-5 /lpf Urine Random Creatinine 100.0 mg/dl Urine Random Total Protein 49.5 mg/dl Urine Random Sodium 54 mEq/L Urine Protein/Creatinine Ratio 0.5 Urine Opiates Screen NEG Urine Methadone, Qualitative NEG Urine Barbiturates NEG Urine Phencyclidine (PCP) Level NEG Ur Amphetamine/Methamphetamine NEG MDMA (Ecstasy) Screen NEG Urine Benzodiazepines Screen NEG Urine Cocaine Metabolite NEG Urine Marijuana (THC) NEG Erythrocyte Sedimentation Rate 72 mm/hr Iron Level 35 mcg/dl Total Iron Binding Capacity 274 mcg/dl Transferrin 214 mg/dl Transferrin % Saturation 12 % Ferritin 480.5 ng/ml Hepatitis B Surface Antigen NEG Hepatitis C Antibody NEG Test 11/23/16 07:30 Sodium Level 136 mmol/L Potassium Level 4.1 mmol/L Chloride Level 98 mmol/L Carbon Dioxide Level 24 mmol/L Anion Gap 14.0 mmol/L Blood Urea Nitrogen 82 mg/dl Creatinine 10.00 mg/dl Est Creatinine Clear Calc Drug Dose 14.8 ml/min Estimated GFR () 7.3 Estimated GFR (Non- 6.3 BUN/Creatinine Ratio 8.2 Random Glucose 98 mg/dl Calcium Level 12.6 mg/dl Total Bilirubin 0.4 mg/dl Aspartate Amino Transf (AST/SGOT) 11 U/L Alanine Aminotransferase (ALT/SGPT) 21 U/L Alkaline Phosphatase 68 U/L Total Protein 7.5 gm/dl Albumin 3.4 gm/dl Globulin 4.1 gm/dl Albumin/Globulin Ratio 0.8 CT scan chest IMPRESSION: 1. Trace right pleural effusion. No airspace consolidation is seen typical for pneumonia. 2. There are numerous mildly enlarged mediastinal lymph nodes. These are of indeterminant etiology and significance, and may be on a reactive basis. A lymphoproliferative disorder is not excluded. Clinical correlation and follow-up will be required. 3. Marked splenomegaly and mildly enlarged upper abdominal lymph nodes. 4. No axillary lymphadenopathy is identified. CT abdomen/pelvis FINDINGS: Lung bases are clear. Mild nonspecific hepatosplenomegaly. Kidneys are negative for hydronephrosis or calcification. Celiac axis nodes measure to 1.3 cm. Mild peripancreatic as well as mesenteric edison change. Nodes measure up to 12 mm. Several periaortic nodes measuring up to 1.4 cm. Gallbladder is contracted. Pancreas appears unremarkable within limitations of an unenhanced scan. Bowel pattern within the abdomen and pelvis is nonobstructive. Normal appendix. Reina catheter present within the bladder. Mild bilateral inguinal adenopathy with nodes measuring to 12 mm. IMPRESSION: 1. Moderate hepatosplenomegaly. 2. Abdominal and inguinal adenopathy as described . 3. Although these findings potentially relate to reactive change, possibly of an etiology such as lymphoma cannot be excluded. US abdomen IMPRESSION: Pancreas: Obscured due to overlying bowel gas. Liver: Hyperechogenic parenchyma with heterogeneous echotexture, likely indicating fibrosis or steatosis. The liver measures 23.8 cm in maximal sagittal dimension. Main portal vein patent with normal directional flow. Biliary: No intrahepatic biliary ductal dilatation. Common bile duct measures up to 3 mm in diameter. Gallbladder: Contracted although without gallstones. Spleen: Normal in echogenicity but enlarged, measuring 18.3 cm in length. Kidneys: Normal in size and echogenicity. Right kidney measures 13 cm, and the left kidney measures 12.9 cm. No hydronephrosis. Vasculature: Visualized portions of the IVC and abdominal aorta normal. Bladder: Bilateral ureteral jets. Hyperechogenic focus within the visualized portion of the prostate consistent with calcification, possibly indicating benign prosthetic hyperplasia. Ascites: None. IMPRESSION: 1. Pancreas obscured due to overlying bowel gas. 2. No evidence of cholecystitis. 3. Echogenic and heterogeneous liver parenchyma may indicate fibrosis or steatosis. 4. Hepatosplenomegaly. Assessment & Plan 26 year old male admitted with progressive fatigue, bilateral hand pain and swelling, facial rash, renal failure, hypercalcemia and hyperuricemia, mild anemia CT scan showing moderate hepatosplenomegaly and adenopathy in the chest and abdomen. Differential diagnosis include multisystem disorder such as sarcoidosis with extrapulmonary involvement or automimmune disease A lymphoproliferative disorder cannot be excluded but his LDH was normal. PTHrp and SPEP and immunofixation and TATY level are pending flow cytometry is send out test I discussed with Dr Davis and he agreed that patient should be transferred to tertiary center where his workup could be expedited and he can have renal and pulmonary consults as patient would require biopsy to establish diagnosis and direct treatment IV hydration Will hold off on bisphosphonates at this time for hypercalcemia since he has renal failure Recommend optho evaluation at the [facility] center for eye exam as well Recommend check serum kappa lambda, upep, urine immunofixation, urine FLC I discussed recommendations with Dr Delatorre and he agreed that patient will be transferred to tertiary center and as the above labs are send out to not order at this time and a hematology consult can be obtained at the tertiary center Thank you for consult
--- NOTE | 2016-11-23 18:37 | Progress Note ---
Medicine Progress Note Date & Time of Visit: Nov 23, 2016 at 18:30. Subjective patient seen resting in bed, comfortable, smiling states he feels ok overall denies headache, dizziness, chest pain, dyspnea, abdominal pain, problems with urination or bowel movement has mild eye dryness, pain on his fingers no other symptom Objective Last 8 Hrs Date Time Temp Pulse Resp B/P (MAP) Pulse Ox O2 Delivery O2 Flow Rate FiO2 11/23/16 16:00 Room Air 11/23/16 15:48 36.8 85 20 146/97 (113) 100 Room Air 11/23/16 12:00 Room Air 11/23/16 11:50 36.7 85 18 145/94 (111) 99 Room Air Physical Exam: General- oriented x 3, not in distress, speaks in sentences with no effort Head- atraumatic Eyes- EOMI, anicteric ENT- oropharynx clear Neck- supple, no JVD, no adenopathy Lungs- clear breath sounds bilaterally Heart- regular rhythm; no murmur, normal rate Abdomen- normal bowel sounds, soft, nontender Extremities- no pretibial edema, no calf tenderness Neuro- alert, oriented x 3; no gross focal deficits Skin- warm & dry Laboratory Results: Last 24 Hours Test 11/23/16 00:45 11/23/16 01:00 11/23/16 05:58 11/23/16 07:26 White Blood Count 13.58 K/uL Red Blood Count 4.38 M/uL Hemoglobin 11.9 g/dL Hematocrit 35.8 % Mean Corpuscular Volume 81.7 fL Mean Corpuscular Hemoglobin 27.2 pg Mean Corpuscular Hemoglobin Concent 33.2 g/dl Platelet Count 319 K/uL Mean Platelet Volume 9.4 fL Neutrophils (%) (Auto) 66.3 % Lymphocytes (%) (Auto) 16.6 % Monocytes (%) (Auto) 9.9 % Eosinophils (%) (Auto) 6.4 % Basophils (%) (Auto) 0.4 % Neutrophils # (Auto) 9.01 K/uL Lymphocytes # (Auto) 2.25 K/uL Monocytes # (Auto) 1.34 K/uL Eosinophils # (Auto) 0.87 K/uL Basophils # (Auto) 0.06 K/uL RDW Standard Deviation 40.8 fL RDW Coefficient of Variation 13.5 % Immature Granulocyte % (Auto) 0.4 % Immature Granulocyte # (Auto) 0.05 K/uL Nucleated RBC Absolute Count (auto) 0.00 K/uL Nucleated Red Blood Cells % 0.0 % Red Blood Cell Morphology Unremarkable Peripheral Blood Smear Path Consult Prothrombin Time 11.8 SECONDS Prothromb Time International Ratio 1.1 Activated Partial Thromboplast Time 27.9 SECONDS Partial Thromboplastin Ratio 1.1 Sodium Level 135 mmol/L Potassium Level 3.9 mmol/L Chloride Level 96 mmol/L Carbon Dioxide Level 26 mmol/L Anion Gap 13.0 mmol/L Blood Urea Nitrogen 86 mg/dl Creatinine 11.00 mg/dl Est Creatinine Clear Calc Drug Dose 13.7 ml/min Estimated GFR () 6.5 Estimated GFR (Non- 5.6 BUN/Creatinine Ratio 7.8 Random Glucose 124 mg/dl Calcium Level 13.7 mg/dl Phosphorus Level 6.7 mg/dl Magnesium Level 2.2 mg/dl Total Bilirubin 0.4 mg/dl Direct Bilirubin 0.1 mg/dl Aspartate Amino Transf (AST/SGOT) 11 U/L Alanine Aminotransferase (ALT/SGPT) 22 U/L Alkaline Phosphatase 75 U/L Lactate Dehydrogenase 177 U/L Total Creatine Kinase 119 U/L Total Protein 7.8 gm/dl Albumin 3.4 gm/dl Lipase 170 U/L 25-Hydroxy Vitamin D Total 13.7 ng/ml Thyroid Stimulating Hormone (TSH) 3.120 uIu/ml Random Cortisol 19.69 mcg/dl Parathyroid Hormone (Intact) 7.5 pg/mL Urine Color YELLOW Urine Appearance CLEAR Urine pH 6.5 Urine Specific [place] 1.016 Urine Protein 1+ Urine Glucose (UA) NEG Urine Ketones NEG Urine Occult Blood 1+ Urine Nitrite NEG Urine Bilirubin NEG Urine Urobilinogen NEG Urine Leukocyte Esterase MODERATE Urine WBC (Auto) >30 /hpf Urine RBC (Auto) 0-4 /hpf Urine Hyaline Casts (Auto) 1-5 /lpf Urine Epithelial Cells (Auto) >30 /lpf Urine Bacteria (Auto) NEG Urine Renal Epithelial Cells 0-5 /lpf Urine Random Creatinine 100.0 mg/dl Urine Random Total Protein 49.5 mg/dl Urine Random Sodium 54 mEq/L Urine Protein/Creatinine Ratio 0.5 Urine Opiates Screen NEG Urine Methadone, Qualitative NEG Urine Barbiturates NEG Urine Phencyclidine (PCP) Level NEG Ur Amphetamine/Methamphetamine NEG MDMA (Ecstasy) Screen NEG Urine Benzodiazepines Screen NEG Urine Cocaine Metabolite NEG Urine Marijuana (THC) NEG Erythrocyte Sedimentation Rate 72 mm/hr Iron Level 35 mcg/dl Total Iron Binding Capacity 274 mcg/dl Transferrin 214 mg/dl Transferrin % Saturation 12 % Ferritin 480.5 ng/ml Hepatitis B Surface Antigen NEG Hepatitis C Antibody NEG Test 11/23/16 07:30 Sodium Level 136 mmol/L Potassium Level 4.1 mmol/L Chloride Level 98 mmol/L Carbon Dioxide Level 24 mmol/L Anion Gap 14.0 mmol/L Blood Urea Nitrogen 82 mg/dl Creatinine 10.00 mg/dl Est Creatinine Clear Calc Drug Dose 14.8 ml/min Estimated GFR () 7.3 Estimated GFR (Non- 6.3 BUN/Creatinine Ratio 8.2 Random Glucose 98 mg/dl Calcium Level 12.6 mg/dl Total Bilirubin 0.4 mg/dl Aspartate Amino Transf (AST/SGOT) 11 U/L Alanine Aminotransferase (ALT/SGPT) 21 U/L Alkaline Phosphatase 68 U/L Total Protein 7.5 gm/dl Albumin 3.4 gm/dl Globulin 4.1 gm/dl Albumin/Globulin Ratio 0.8 Assessment & Plan 26 yo M with history of hypertension, presents with acute renal failure and hypercalcemia Acute renal failure -- unclear etiology may be pre renal with underlying autoimmune process: SLE, Sarcoidosis, Sjogren 's, Vasculitis -- CT abd: no obstruction -- given IV fluids -- crea 10 this morning -- Nephrology consulted will need renal biopsy recommend transfer to [facility] Hypercalcemia - PTH is low. Vit D low - IV fluids given monitor Lymphadenopathy - seen on CT chest and abdomen/pelvis - Oncology consulted, may need lymph node biopsy recommend transfer to [facility] HTN - Amlodipine started - improving DVT proph-heparin in setting of renal failure Full Code Dispo transfer to [facility] discussed with patient and his friend, they are agreeable and comfortable with plan of care discussed with Dr. Sharma, Hospitalist, who kindly accepted the patient Current Inpatient Medications: Current Inpatient Medications Medications (Trade) Dose Ordered Sig/Krista Route Start Time Stop Time Status Last Admin Dose Admin Heparin Sodium (Porcine) (Heparin Sq 5000 Unit/0.5ml) 5,000 unit Q8 SQ 11/23/16 06:00 12/23/16 05:59 11/23/16 14:26 5,000 UNIT Sodium Chloride 1,000 ml @ 200 mls/hr Q5H IV 11/23/16 05:00 12/23/16 04:59 11/23/16 15:35 200 MLS/HR Acetaminophen (Tylenol Tab) 650 mg Q4H PRN PO 11/23/16 03:15 12/23/16 03:14 Amlodipine Besylate (Norvasc Tab) 10 mg Q24H PO 11/23/16 09:00 12/23/16 08:59 11/23/16 06:07 10 MG Pantoprazole Sodium (Protonix Tab) 40 mg QAM PO 11/23/16 09:00 12/23/16 08:59 11/23/16 07:42 40 MG Iron Sucrose 100 mg/Sodium Chloride 105 ml @ 420 mls/hr DAILY IV 11/23/16 15:30 11/26/16 14:44 11/23/16 15:35 420 MLS/HR
[2016-11-23] MEDS ORDERED: NRV5 PO (18:38)
--- NOTE | 2016-11-23 18:41 | Discharge Instructions ---
Discharge Instructions Date of Service Nov 23, 2016. Admission Reason for Admission: Acute Renal Failure Discharge Discharge Diagnosis / Problem: ACUTE RENAL FAILURE, HYPERCALCEMIA Discharge Goals Goal(s): Diagnostic testing, Therapeutic intervention Activity Recommendations Activity Level: Ambulates in room Therapies: Physical Therapy, Occupational Therapy . Additional Information Patient informed of condition: Yes Advance Directives: No DNR: No (PATIENT IS FULL CODE) Level of Care: Other ([facility]) Communicable Disease: No Prognosis: Other (GUARDED) Reina Catheter: Yes Instructions / Follow-Up Instructions / Follow-Up PLEASE REFER TO SEPARATE MEDICAL RECONCILIATION SHEET FOR UPDATED INPATIENT MEDICATION LIST. REFER TO ACCOMPANYING HOSPITAL DISCHARGE SUMMARY FOR ALL DETAILS. Current Hospital Diet Patient's current hospital diet: Renal Diet Discharge Diet Recommended Diet: AHA Diet (Heart Healthy), Renal Diet Pending Studies Studies pending at discharge: yes List of pending studies: POSSIBLE RENAL AND LYMPH NODE BIOPSY Physician Orders On Transfer Special Precautions: PLEASE REFER TO SEPARATE MEDICAL RECONCILIATION SHEET FOR UPDATED INPATIENT MEDICATION LIST. REFER TO ACCOMPANYING HOSPITAL DISCHARGE SUMMARY FOR ALL DETAILS. Medical Emergencies . Who to Call and When: Medical Emergencies: If at any time you feel your situation is an emergency, please call 911 immediately. . Non-Emergent Contact Non-Emergency issues call your: Primary Care Provider . Past History Medical & Surgical History: (1) Hypercalcemia (2) Acute renal failure (3) Hypertension (4) S/P wisdom tooth extraction . "Provider Documentation" section prepared by Juan Matute. . Core Measure Problem Core Measures: None
[2016-11-23 18:43] VITALS: BP 146/97; PULSE 85; TEMP 36.8; O2SAT 100
--- NOTE | 2016-11-23 18:43 | Rheumatology Consultation ---
Rheumatology Consultation Date of Consultation: Nov 23, 2016. Attending Physician: Raz Reason for Consultation: ? Scleroderma History of Present Illness 26 year old man with past medical history of hypertension and gout who was admitted for acute renal failure. He developed nausea and vomiting 3 weeks ago which did not improve so he was seen by Family Practice yesterday and labs demonstrated creatinine of 9.9 and calcium 14.3 so he was advised to present to the ED and was admitted. Last normal renal function in the [facility] was 1.1 back in 2011. He has had hypertension since age 16 and initially tried lifestyle modification before being placed on Lisinopril which he was not taking routinely. He reports joint pain affecting his hands for the past several years. 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 He would sometimes have swelling of his fingers. He was diagnosed with gout in 2011. He was on allopurinol for a brief period of time. Uric acid in 2009 was 13.1 and the last uric acid in the [facility] was 7.9 in 2011. 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 He initially attributed his symptoms to the heat at work but was off for 2 days prior to admission and continued to have nausea and vomiting. He has had the rash on his face for several years. His eyes became bothersome for the past few days. He denies headaches, changes in his vision, unintentional weight loss, history of oral/ nasal ulcers, Raynaud's syndrome, reflux, bloody stools, bloody urine or night sweats. Past Medical/Surgical History Medical History: gout, hypertension, other (Obesity, attention deficit disorder ) Surgical History: no surgical history Family History adopted Social History Smoking Status: Never Smoker History of Alcohol Use: Yes (Beer 4-5x per month.) Drug Use: none Marital Status: single Housing Status: lives with family Occupation Status: employed Review of Systems Eyes: + eye pain, + redness Abdomen: + nausea, + vomiting, No diarrhea, No constipation, No GI bleeding Musculoskeletal: + joint pain, + swelling Male : No dysuria, No urinary frequency, No hematuria Neurologic: No weakness, No numbness/tingling Heme: No abnormal bleeding/bruising, No night sweats Endo: No fatigue Skin: + rash Allergies Coded Allergies: No Known Allergies (Unverified , 12/13/06) Medications Current Inpatient Medications Medications (Trade) Dose Ordered Sig/Krista Route Start Time Stop Time Status Last Admin Dose Admin Heparin Sodium (Porcine) (Heparin Sq 5000 Unit/0.5ml) 5,000 unit Q8 SQ 11/23/16 06:00 12/23/16 05:59 11/23/16 14:26 5,000 UNIT Sodium Chloride 1,000 ml @ 200 mls/hr Q5H IV 11/23/16 05:00 12/23/16 04:59 11/23/16 15:35 200 MLS/HR Acetaminophen (Tylenol Tab) 650 mg Q4H PRN PO 11/23/16 03:15 12/23/16 03:14 Amlodipine Besylate (Norvasc Tab) 10 mg Q24H PO 11/23/16 09:00 12/23/16 08:59 11/23/16 06:07 10 MG Pantoprazole Sodium (Protonix Tab) 40 mg QAM PO 11/23/16 09:00 12/23/16 08:59 11/23/16 07:42 40 MG Iron Sucrose 100 mg/Sodium Chloride 105 ml @ 420 mls/hr DAILY IV 11/23/16 15:30 11/26/16 14:44 11/23/16 15:35 420 MLS/HR Physical Exam Date Time Temp Pulse Resp B/P (MAP) Pulse Ox O2 Delivery O2 Flow Rate FiO2 11/23/16 16:00 Room Air 11/23/16 15:48 36.8 85 20 146/97 (113) 100 Room Air 11/23/16 12:00 Room Air 11/23/16 11:50 36.7 85 18 145/94 (111) 99 Room Air 11/23/16 08:00 Room Air 11/23/16 06:55 36.8 88 19 140/94 (109) 95 Room Air 11/23/16 04:15 36.9 93 18 185/109 94 Room Air 11/23/16 04:03 86 20 164/105 95 Room Air 11/23/16 02:42 94 18 171/116 100 Room Air 11/23/16 01:28 88 11/23/16 00:44 92 20 138/103 95 Room Air 11/23/16 00:43 95 Room Air 11/23/16 00:43 95 Room Air 11/22/16 23:59 36.6 100 19 163/109 95 Room Air Eyes: bilateral eyes EOMI, bilateral eyes conjunctival inflammation Neck: supple, no adenopathy, thyroid normal Respiratory: chest non-tender, lungs clear, normal breath sounds, no respiratory distress, no accessory muscle use Cardiovascular: regular rate, rhythm, no edema Abdomen: normal bowel sounds, soft Musculoskeletal: No joint pain Inability to make a closed tight fist with the right hand or fully flex right 3rd PIP No joint swelling Neurologic/Psychiatric: alert, normal mood/affect, oriented x 3 Skin: + rash (erythematous rash across eyebrows, cheeks, and chin; no Raynaud's , sclerdactyly or telangiectasias; + periungual erythema with ragged cuticles; papable nodules on both knees) Laboratory Results Last 24 Hours Test 11/23/16 00:45 11/23/16 01:00 11/23/16 05:58 11/23/16 07:26 White Blood Count 13.58 K/uL Red Blood Count 4.38 M/uL Hemoglobin 11.9 g/dL Hematocrit 35.8 % Mean Corpuscular Volume 81.7 fL Mean Corpuscular Hemoglobin 27.2 pg Mean Corpuscular Hemoglobin Concent 33.2 g/dl Platelet Count 319 K/uL Mean Platelet Volume 9.4 fL Neutrophils (%) (Auto) 66.3 % Lymphocytes (%) (Auto) 16.6 % Monocytes (%) (Auto) 9.9 % Eosinophils (%) (Auto) 6.4 % Basophils (%) (Auto) 0.4 % Neutrophils # (Auto) 9.01 K/uL Lymphocytes # (Auto) 2.25 K/uL Monocytes # (Auto) 1.34 K/uL Eosinophils # (Auto) 0.87 K/uL Basophils # (Auto) 0.06 K/uL RDW Standard Deviation 40.8 fL RDW Coefficient of Variation 13.5 % Immature Granulocyte % (Auto) 0.4 % Immature Granulocyte # (Auto) 0.05 K/uL Nucleated RBC Absolute Count (auto) 0.00 K/uL Nucleated Red Blood Cells % 0.0 % Red Blood Cell Morphology Unremarkable Peripheral Blood Smear Path Consult Prothrombin Time 11.8 SECONDS Prothromb Time International Ratio 1.1 Activated Partial Thromboplast Time 27.9 SECONDS Partial Thromboplastin Ratio 1.1 Sodium Level 135 mmol/L Potassium Level 3.9 mmol/L Chloride Level 96 mmol/L Carbon Dioxide Level 26 mmol/L Anion Gap 13.0 mmol/L Blood Urea Nitrogen 86 mg/dl Creatinine 11.00 mg/dl Est Creatinine Clear Calc Drug Dose 13.7 ml/min Estimated GFR () 6.5 Estimated GFR (Non- 5.6 BUN/Creatinine Ratio 7.8 Random Glucose 124 mg/dl Calcium Level 13.7 mg/dl Phosphorus Level 6.7 mg/dl Magnesium Level 2.2 mg/dl Total Bilirubin 0.4 mg/dl Direct Bilirubin 0.1 mg/dl Aspartate Amino Transf (AST/SGOT) 11 U/L Alanine Aminotransferase (ALT/SGPT) 22 U/L Alkaline Phosphatase 75 U/L Lactate Dehydrogenase 177 U/L Total Creatine Kinase 119 U/L Total Protein 7.8 gm/dl Albumin 3.4 gm/dl Lipase 170 U/L 25-Hydroxy Vitamin D Total 13.7 ng/ml Thyroid Stimulating Hormone (TSH) 3.120 uIu/ml Random Cortisol 19.69 mcg/dl Parathyroid Hormone (Intact) 7.5 pg/mL Urine Color YELLOW Urine Appearance CLEAR Urine pH 6.5 Urine Specific Mcneal 1.016 Urine Protein 1+ Urine Glucose (UA) NEG Urine Ketones NEG Urine Occult Blood 1+ Urine Nitrite NEG Urine Bilirubin NEG Urine Urobilinogen NEG Urine Leukocyte Esterase MODERATE Urine WBC (Auto) >30 /hpf Urine RBC (Auto) 0-4 /hpf Urine Hyaline Casts (Auto) 1-5 /lpf Urine Epithelial Cells (Auto) >30 /lpf Urine Bacteria (Auto) NEG Urine Renal Epithelial Cells 0-5 /lpf Urine Random Creatinine 100.0 mg/dl Urine Random Total Protein 49.5 mg/dl Urine Random Sodium 54 mEq/L Urine Protein/Creatinine Ratio 0.5 Urine Opiates Screen NEG Urine Methadone, Qualitative NEG Urine Barbiturates NEG Urine Phencyclidine (PCP) Level NEG Ur Amphetamine/Methamphetamine NEG MDMA (Ecstasy) Screen NEG Urine Benzodiazepines Screen NEG Urine Cocaine Metabolite NEG Urine Marijuana (THC) NEG Erythrocyte Sedimentation Rate 72 mm/hr Iron Level 35 mcg/dl Total Iron Binding Capacity 274 mcg/dl Transferrin 214 mg/dl Transferrin % Saturation 12 % Ferritin 480.5 ng/ml Hepatitis B Surface Antigen NEG Hepatitis C Antibody NEG Test 11/23/16 07:30 Sodium Level 136 mmol/L Potassium Level 4.1 mmol/L Chloride Level 98 mmol/L Carbon Dioxide Level 24 mmol/L Anion Gap 14.0 mmol/L Blood Urea Nitrogen 82 mg/dl Creatinine 10.00 mg/dl Est Creatinine Clear Calc Drug Dose 14.8 ml/min Estimated GFR () 7.3 Estimated GFR (Non- 6.3 BUN/Creatinine Ratio 8.2 Random Glucose 98 mg/dl Calcium Level 12.6 mg/dl Total Bilirubin 0.4 mg/dl Aspartate Amino Transf (AST/SGOT) 11 U/L Alanine Aminotransferase (ALT/SGPT) 21 U/L Alkaline Phosphatase 68 U/L Total Protein 7.5 gm/dl Albumin 3.4 gm/dl Globulin 4.1 gm/dl Albumin/Globulin Ratio 0.8 ESR 72 Pending labs: KIRT ANCA Complements SPEP SS-A/B Hep A and B Assessment & Plan Assessment & Plan: 26 yo M with history of gout and hypertension admitted for acute renal failure. CT of the chest/abdomen/pelvis showing diffuse lymphadenopathy and hepatosplenomegaly. Unclear if he has a malignancy. Cause of his acute renal failure may be due to an autoimmune process (scleroderma, lupus, vasculitis). Patients who present with scleroderma renal crisis often have diffuse skin involvement and the renal crisis may be precipitated by steroid use none of which are evident in this case. The nodules on his knees could be calcium versus tophi. Lupus is on the differential although he has no other clinical features. Several serologies are pending and treatment would be guided by more information as to the cause of his condition. Recommendations 1. Consider renal biopsy. 2. Would check Scl-70, uric acid, RF, CCP, and RNA polymerase III. 3. Blood pressure control 4. Next steps pending test results. Thank you for allowing rheumatology to participate in the care of this patient.
--- NOTE | 2016-11-23 18:45 | Discharge Summary ---
Discharge Summary Date of Service Nov 23, 2016. Discharge Summary Admission Date: Nov 23, 2016 at 03:17 Discharge Date: Nov 23, 2016 Discharge Disposition: Acute care facility Principal Diagnosis: Acute renal failure -- unclear etiology Secondary Diagnoses/Problems: Please refer to hospital course below. Procedures: CT SCAN OF THE CHEST WITHOUT IV CONTRAST CLINICAL HISTORY: Abnormal chest x-ray. Mediastinal widening. COMPARISON STUDY: Chest x-ray dated 11/23/2016. TECHNIQUE: CT scan of the thorax was performed from the thoracic inlet to the upper abdomen. Images are reviewed in the axial, sagittal, and coronal planes. IV contrast was not administered for this examination as per the referring clinician. Note that the examination is suboptimal without IV contrast. CT DOSE: 916.79 mGy.cm FINDINGS: Thyroid: Imaged portions of the thyroid gland are normal in size and attenuation. Thoracic aorta: The thoracic aorta is normal in caliber and demonstrates standard 3-vessel arch anatomy. Heart: The heart is normal in size and without pericardial effusion. The pulmonary trunk is normal in caliber. Lungs and pleural spaces: There is a trace right pleural effusion. A 3 mm pleural-based nodule is seen in the right middle lobe along the minor fissure on axial image #132. No airspace consolidation is seen typical for pneumonia. The trachea and central airways are clear. Mediastinum: There are numerous mildly enlarged mediastinal lymph nodes. The largest is in the high right peritracheal region on image #43 measuring 1.3 cm in short axis. Prevascular nodes measure up to 1.1 cm in short axis as seen on image #96. A subcarinal node on image #121 measures 1.6 cm in short axis. Melba: Not well assessed without IV contrast. Axillae: There is no axillary lymphadenopathy. Upper abdomen: The spleen is markedly enlarged measuring over 17 cm in length. Mildly enlarged gastrohepatic lymph nodes are identified. These measure up to 1.5 cm in short axis. Skeletal structures: No lytic or blastic bony lesions are seen. IMPRESSION: 1. Trace right pleural effusion. No airspace consolidation is seen typical for pneumonia. 2. There are numerous mildly enlarged mediastinal lymph nodes. These are of indeterminant etiology and significance, and may be on a reactive basis. A lymphoproliferative disorder is not excluded. Clinical correlation and follow-up will be required. 3. Marked splenomegaly and mildly enlarged upper abdominal lymph nodes. 4. No axillary lymphadenopathy is identified. ABD/PELVIS NO IV OR ORAL CONT CT DOSE: 1834.72 mGy.cm HISTORY: Abnormal ultrasound splenomegaly /SANTY /hypercalcemia TECHNIQUE: Multiaxial CT images of the abdomen and pelvis were performed without contrast. COMPARISON STUDY: Ultrasound 11/23/2016 FINDINGS: Lung bases are clear. Mild nonspecific hepatosplenomegaly. Kidneys are negative for hydronephrosis or calcification. Celiac axis nodes measure to 1.3 cm. Mild peripancreatic as well as mesenteric edison change. Nodes measure up to 12 mm. Several periaortic nodes measuring up to 1.4 cm. Gallbladder is contracted. Pancreas appears unremarkable within limitations of an unenhanced scan. Bowel pattern within the abdomen and pelvis is nonobstructive. Normal appendix. Reina catheter present within the bladder. Mild bilateral inguinal adenopathy with nodes measuring to 12 mm. IMPRESSION: 1. Moderate hepatosplenomegaly. 2. Abdominal and inguinal adenopathy as described . 3. Although these findings potentially relate to reactive change, possibly of an etiology such as lymphoma cannot be excluded. ABDOMEN COMPLETE (US) CLINICAL HISTORY: 26 years-old Male presenting with upper abd fullness, hypercalcemia, AM Vomiting, CR 10, weak. TECHNIQUE: Real-time grayscale and limited color Doppler ultrasound imaging of the abdomen was performed. COMPARISON: None. FINDINGS: Pancreas: Obscured due to overlying bowel gas. Liver: Hyperechogenic parenchyma with heterogeneous echotexture, likely indicating fibrosis or steatosis. The liver measures 23.8 cm in maximal sagittal dimension. Main portal vein patent with normal directional flow. Biliary: No intrahepatic biliary ductal dilatation. Common bile duct measures up to 3 mm in diameter. Gallbladder: Contracted although without gallstones. Spleen: Normal in echogenicity but enlarged, measuring 18.3 cm in length. Kidneys: Normal in size and echogenicity. Right kidney measures 13 cm, and the left kidney measures 12.9 cm. No hydronephrosis. Vasculature: Visualized portions of the IVC and abdominal aorta normal. Bladder: Bilateral ureteral jets. Hyperechogenic focus within the visualized portion of the prostate consistent with calcification, possibly indicating benign prosthetic hyperplasia. Ascites: None. IMPRESSION: 1. Pancreas obscured due to overlying bowel gas. 2. No evidence of cholecystitis. 3. Echogenic and heterogeneous liver parenchyma may indicate fibrosis or steatosis. 4. Hepatosplenomegaly. HEAD WITHOUT CONTRAST (CT) CLINICAL HISTORY: 26 years-old Male presenting with FIGUEROA, hypercalcemia. TECHNIQUE: Multidetector CT imaging of the head was performed without the use of intravenous contrast. COMPARISON: None. CT DOSE: 537.48 mGy.cm FINDINGS: Brain parenchyma normal in appearance with preserved sellers-white differentiation. No mass effect or midline shift. No hemorrhage or acute territorial infarct. No hydrocephalus. No extra-axial fluid collection. Minimal mucosal thickening of the left maxillary sinus. Calvarium intact. IMPRESSION: No acute intracranial pathology. Consultations: Nephrology, Oncology, Rheumatology Pending Studies/Follow-Up: Please refer to hospital course below. Medication Reconciliation New Medications: Amlodipine Besylate (Amlodipine Besylate) 5 Mg Tab 10 MG PO Q24H for 30 Days, #30 TAB Continued Medications: Omeprazole (Prilosec) 20 Mg Capcr 20 MG PO QAM, CAP TAKE THIS MED ONE HOUR BEFORE THE FIRST MEAL OF THE DAY. Discontinued Medications: Lisinopril (Zestril) 10 Mg Tab 10 MG PO DAILY, TAB Admission Information HPI (per Admitting provider): 26 yo M with HTN for 1-2 years presents with 3 weeks of malaise and intermittent nausea and vomiting along with fatigue. He was seen in PCP office and found to be in renal failure with a creatinine of 9.9. In the ER, labwork reveals a creat 10 and a calcium of 14. He reports that his face, which has always had a rash on it, has been more red in the last few weeks. Also he has been suffering from dryness and grittiness in his eyes, which are significantly red and irritated. He also states that his mouth is dry. 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 He also has hand fatigue while riding a bike, making this hard , as well. He reports a h/o gout in his R knee, however, when asked further, this was not crystal-proven gout. Instead there are calcium deposits in both knees along the tibial plateau, and on the right he remembers hitting it and it becoming red and hot and swollen. He states he was treated with abx although no one tested the synovial fluid, and ultimately it got better. He denies tendonitis or calcium deposits anywhere else. He denies chest pain or shortness of breath. He does admit to some headaches and reports that he hasn't been eating well lately and feels that he must have lost weight. He denies any travel history or tick bites. He denies any abdominal pain. He reports occasional use of NSAIDs for his pain in his fingers but this is no more than once weekly. He reports not using lisinopril regularly, and this has gone on for at least one year. He simply forgets to take it. He denies any history of medical problems in parents, however, his mother young from an OD and his father, although alive, gave custody to a neighbor with whom he still lives. Physical Exam (per Admitting): GEN: WNWD, in no acute distress, alert and appropriate, in good spirits. HEENT: NC/AT, PERRL, irritated and red-appearing sclerae bilaterally, EOMMI, pharynx non-acute, MMM, no LAD CARDIO: reg rate, S1/2 heard without m/g/r LUNGS: CTA bilaterally, no crackles, rales or wheezes, good diaphragmatic excursion ABD: soft, non-tender, non-distended, no rebound or guarding, +BS EXTREMITY: RP and DP palpable 2+ bilat, no LE swelling or edema, extremities are warm and well-perfused NEURO: CN 2-12 grossly intact, sensation intact throughout MUSC: 5/5 strength throughout, no focal deficits x cannot close a tight fist on the left hand. SKIN: warm and dry, calcium deposits in knees bilaterally, erythematous macular rash across bridge of nose and T-zone, nailbeds are normal Hospital Course 26 yo M with history of hypertension, presents with acute renal failure and hypercalcemia Acute renal failure -- unclear etiology may be pre renal with underlying autoimmune process: SLE, Sarcoidosis, Sjogren 's, Vasculitis, Scleroderma? -- CT abd: no obstruction -- given IV fluids -- crea 11--> 10 this morning no signs of volume overload, still diuresing, oriented -- Nephrology consulted will need renal biopsy recommend transfer to [facility] Hypercalcemia - PTH is low. Vit D low - IV fluids given monitor Diffuse Lymphadenopathy - seen on CT chest and abdomen/pelvis - Oncology consulted, may need lymph node biopsy recommend transfer to [facility] HTN - Amlodipine started - improving DVT proph-heparin in setting of renal failure Full Code Dispo transfer to [facility] discussed with patient and his friend, they are agreeable and comfortable with plan of care discussed with Dr. Sharma, Hospitalist, who kindly accepted the patient Total time spent on discharge = 50 minutes This includes examination of the patient, discharge planning, medication reconciliation, and communication with other providers. Discharge Instructions Discharge Instructions Date of Service Nov 23, 2016. Admission Reason for Admission: Acute Renal Failure Discharge Discharge Diagnosis / Problem: ACUTE RENAL FAILURE, HYPERCALCEMIA Discharge Goals Goal(s): Diagnostic testing, Therapeutic intervention Activity Recommendations Activity Level: Ambulates in room Therapies: Physical Therapy, Occupational Therapy . Additional Information Patient informed of condition: Yes Advance Directives: No DNR: No (PATIENT IS FULL CODE) Level of Care: Other ([facility]) Communicable Disease: No Prognosis: Other (GUARDED) Reina Catheter: Yes Instructions / Follow-Up Instructions / Follow-Up PLEASE REFER TO SEPARATE MEDICAL RECONCILIATION SHEET FOR UPDATED INPATIENT MEDICATION LIST. REFER TO ACCOMPANYING HOSPITAL DISCHARGE SUMMARY FOR ALL DETAILS. Current Hospital Diet Patient's current hospital diet: Renal Diet Discharge Diet Recommended Diet: AHA Diet (Heart Healthy), Renal Diet Pending Studies Studies pending at discharge: yes List of pending studies: POSSIBLE RENAL AND LYMPH NODE BIOPSY Physician Orders On Transfer Special Precautions: PLEASE REFER TO SEPARATE MEDICAL RECONCILIATION SHEET FOR UPDATED INPATIENT MEDICATION LIST. REFER TO ACCOMPANYING HOSPITAL DISCHARGE SUMMARY FOR ALL DETAILS. Medical Emergencies . Who to Call and When: Medical Emergencies: If at any time you feel your situation is an emergency, please call 911 immediately. . Non-Emergent Contact Non-Emergency issues call your: Primary Care Provider . Past History Medical & Surgical History: (1) Hypercalcemia (2) Acute renal failure (3) Hypertension (4) S/P wisdom tooth extraction . "Provider Documentation" section prepared by Juan Matute. . Core Measure Problem Core Measures: None
[2016-11-23 19:36] VITALS: BP 161/100; PULSE 90; TEMP 37; O2SAT 98
[2016-11-27 00:03] LABS: ANTI-SS-A <1.0 NEG AI (<1.0 NEG); ANTI-SS-B <1.0 NEG AI (<1.0 NEG)
== END 2016-11-23 22:25 | disposition short-term general hospital (02) | DRG 683 ==
LOC: C.EDB 23:47 → C.2E 11-23 03:17 → ENRESERV 11-23 03:41
PROVIDERS: ADMIT Hospitalist; ATTEND Internal Medicine
DX: N17.9 Acute kidney failure, unspecified (principal); Z68.41 Body mass index [BMI] 40.0-44.9, adult; R11.2 Nausea with vomiting, unspecified; R53.83 Other fatigue; E83.52 Hypercalcemia; R59.1 Generalized enlarged lymph nodes; I10 Essential (primary) hypertension; D64.9 Anemia, unspecified; E88.09 Other disorders of plasma-protein metabolism, not elsewhere classified; E79.0 Hyperuricemia without signs of inflammatory arthritis and tophaceous disease; R21 Rash and other nonspecific skin eruption; M65.9 Synovitis and tenosynovitis, unspecified; M25.50 Pain in unspecified joint; E66.9 Obesity, unspecified; Z79.899 Other long term (current) drug therapy